=== PATIENT | male | born 1995 | race Two or more races ===

== ENCOUNTER 2020-09-03 19:14 | Emergency (ER) | payer SELFPAY ==
[~2020-09-03] VITALS: Ht 188 cm; Wt 91.0 kg
[2020-09-03] MEDS ORDERED: BACITRACIN ZINC OINT UDPKT TOP ONE (19:45)
[2020-09-03] MEDS ORDERED: ACETAMINOPHEN 325MG TABLET PO ONE (19:45)
[2020-09-03] MEDS ORDERED: LIDOCAINE 1%/EPI 1:100,000 10 ML VIAL IJ ONE (19:45)
[2020-09-03] MEDS ORDERED: TETANUS, DIPHTHERIA, PERTUSSIS VAC/PF 0.5ML (>7YR OLD) IM ONE (19:45)
[2020-09-03] MEDS ORDERED: LIDOCAINE HCL/EPINEPHRINE 1%-EPI 1:100,000 20 ML VIAL INFIL SCH (19:50)
[2020-09-03 20:30] VITALS: BP 131/79
== END 2020-09-03 20:39 | disposition home or self-care (01) ==
LOC: ER 19:14
DX: S61.412A Laceration without foreign body of left hand, initial encounter (principal); Y04.0XXA Assault by unarmed brawl or fight, initial encounter; Y93.89 Activity, other specified; Y92.89 Other specified places as the place of occurrence of the external cause; Y99.8 Other external cause status
CPT/HCPCS: 12001; 73100; 90471; 90715; 99283; J3490; Z7610